=== PATIENT | male | born 1980 | race Caucasian/White ===

== ENCOUNTER 2020-07-24 14:18 | Inpatient (IN) ==
[2020-07-24] MEDS ORDERED: hydrOXYzine HCl 25 MG TAB PO STA (14:54)
--- NOTE | 2020-07-24 15:07 | Emergency Department Note ---
Impression & Plan Suicidal ideation ED Provider Note NAME: BRAIN ROUSE AGE: 40 SEX: M : 1980 ARRIVES VIA: Ambulance INFORMANT: [Patient][nursing] ED PROVIDER(S): [Tereso Solis MD] CHIEF COMPLAINT: Suicidal HISTORY OF PRESENT ILLNESS: The patient is a 40-year-old male who presents to the ED with suicidal ideation. He has a plan to walk out in front of a car. The patient states that he has been feeling suicidal for around 2 months or so but things are worsening. He states he is overwhelmed with the fact that he feels he is a burden to his family and society. He is currently homeless. Patient states that in addition, he was discharged today from [facility] after around 3 months of rehab. He was being discharged to a homeless senior living that was not in the area and he became overly anxious and upset about the new living situation. The patient admits that he has a problem with alcohol. He has liver disease. Has been hospitalized multiple times for his alcohol abuse. He was recently at [facility]. After about a month of hospitalization at their facility for DTs, he was sent to rehab at [facility]. The patient has regained his strength and thus, was stable for discharge from rehab. The patient states that he was on some psychiatric medications, most of the though have been discontinued. He is willing to come into the hospital voluntarily for help. He does not want to feel this way. REVIEW OF SYSTEMS: See HPI for pertinent positives and negatives. A total of ten systems were reviewed and were otherwise negative. PMHx/PSHx: See Below SOCIAL HISTORY: See Below. PHYSICAL EXAM: GENERAL: Patient is in no acute distress. HEENT: No acute trauma, normocephalic atraumatic, mucous membranes moist, no na jordy congestion, no scleral icterus. NECK: No stridor, no adenopathy, no meningismus, trachea is midline. LUNGS: Clear to auscultation bilaterally, no wheeze, no rhonchi, breath sounds equal. HEART: Without murmurs gallops or rubs, regular rate and rhythm. ABDOMEN: Soft, nontender, bowel sounds positive, no hernias, no peritonitis. EXTREMITIES: No cyanosis or edema, full range of motion of all the joints without pain or difficulty, no signs for acute trauma. NEUROLOGIC: Oriented x 3, no acute motor or sensory deficits, no focal weakness. SKIN: No rash, no jaundice, no diaphoresis. Psychiatric: Cooperative, voluntary. Admits to suicidal ideation with a plan. DIFFERENTIAL DIAGNOSIS: Mood disorder, infection, hypoglycemia, electrolyte abnormalities, suicidal ideation, cardiac sources, intracerebral event, toxicologic etiology, trauma, neurologic event, as well as other pathologies. EMERGENCY DEPARTMENT COURSE/PROCEDURES: MEDICAL DECISION MAKING: There is no leukocytosis. The patient is anemic but this is baseline when looking back at his recent testing. He also has a low platelet count, also baseline. No significant electrolyte abnormality or kidney failure. There are some subtle liver enzyme elevations which have been documented in the very recent past and thus baseline. Patient's TSH was slightly elevated, the T4 was normal. Urinalysis did not show any evidence for infection. Aspirin, Tylenol and alcohol levels were undetectable. Urine tox was negative. Covid testing returned negative. The patient presents with suicidal ideation. He had a plan to walk out in front of a vehicle. He has had suicidal ideation in the past and has in the past been hospitalized on a psychiatric service. The patient is voluntary, he is cooperative. He is willing to be hospitalized by psychiatry. Patient was given his typical dose of oral Adderall. He received oral hydroxyzine to help with some agitation. He was given his typical dose of oral oxycodone. He received his typical dose of oral Lopressor. The patient is currently undergoing a bed search for psychiatric placement. I do think he is medically clear. At this point, the case is being assumed by Dr. Cho at the change of shift. Please see his notes for the final disposition and plan. Past Med/Surg History Medical History Alcohol abuse Delirium tremens Depression Liver disease Social History Smoking Status: Former smoker Feels Safe at Home: Yes Allergies Allergies Allergy/AdvReac Type Severity Reaction Status Date / Time No Known Allergies Allergy Mild Verified 07/24/20 15:05 Home Meds Home Medications Medication Instructions Recorded Confirmed Albuterol-Ipratropium 1 puff INHALATION QID PRN 07/24/20 07/24/20 100mcg-20mcg/Inh Aerosol Hydrocortisone/Neomycin/Polymixin 2 drp OTIC (EAR) QID 07/24/20 07/24/20 B Otic Solution acetaminophen [Tylenol] 650 mg PO QID PRN 07/24/20 07/24/20 ascorbic acid (vitamin C) 500 mg PO BID 07/24/20 07/24/20 cholecalciferol (vitamin D3) 50 mcg PO DAILY 07/24/20 07/24/20 dextroamphetamine-amphetamine 20 mg PO TID 07/24/20 07/24/20 docusate sodium [Colace] 100 mg PO BID PRN 07/24/20 07/24/20 duloxetine 30 mg PO DAILY 07/24/20 07/24/20 famotidine [Pepcid] 20 mg PO DAILY 07/24/20 07/24/20 folic acid 1 mg PO DAILY 07/24/20 07/24/20 lactulose 40 g PO QID 07/24/20 07/24/20 lidocaine 1 patch TOPICAL DAILY 07/24/20 07/24/20 melatonin 3 mg PO HS 07/24/20 07/24/20 metoprolol tartrate 50 mg PO BID 07/24/20 07/24/20 multivitamin 1 tab PO DAILY 07/24/20 07/24/20 ondansetron HCl [Zofran] 8 mg PO DAILY PRN 07/24/20 07/24/20 oxycodone 2.5 mg PO Q8H PRN 07/24/20 07/24/20 pantoprazole 40 mg PO BID 07/24/20 07/24/20 potassium chloride 10 meq PO DAILY 07/24/20 07/24/20 rifaximin 550 mg PO BID 07/24/20 07/24/20 simethicone 80 mg PO TID PRN 07/24/20 07/24/20 sodium bicarbonate 1,300 mg PO BID 07/24/20 07/24/20 tramadol [Ultram] 25 mg PO Q8H PRN 07/24/20 07/24/20 ursodiol 300 mg PO BID 07/24/20 07/24/20 Results & Data (ED) Vital Signs Vital Signs - 24 hr 07/24/20 14:29 07/24/20 17:22 Temperature 37.1 C Temperature Source Oral Pulse Rate 92 H Pulse Rate [Right Finger] 92 H 94 H Respiratory Rate 20 20 Respiratory Effort / Characteristics Non-Labored Spontaneous Respiratory Depth Normal Respiratory Pattern Regular Blood Pressure 178/112 H Blood Pressure [Left Arm] 178/112 H 147/106 H Blood Pressure Mean 134 Blood Pressure Mean [Left Arm] 134 119 Pulse Oximetry 98 99 Oxygen Delivery Method Room Air Sepsis Recent Fever Within 48 Hours No Sepsis New/Unexplained Change in Mental Status No Sepsis Action Taken by Nursing No Action Required Home Medications Current Medication List: was personally reviewed by me Laboratory Data Attestation: I reviewed the patient's lab results. Result diagrams: 07/24/20 15:04 07/24/20 15:04 Lab Results 07/24/20 07/24/20 07/24/20 Range/Units 15:04 15:04 15:04 WBC 4.85 (4.8-10.8) K/uL RBC 2.99 L (4.7-6.1) M/uL Hgb 9.1 L (14.0-18.0) g/dL Hct 27.2 L (42-52) % MCV 91.0 (80-100) fL MCH 30.4 (25-34) pg MCHC 33.5 (32-36) g/dL RDW Std Deviation 53.2 H (36.4-46.3) fL RDW Coeff of Maia 16.0 H (11.5-14.5) % Plt Count 69 L (130-400) K/uL MPV 8.5 (7.4-10.4) fL Immature Gran % (Auto) 0.2 % Neut % (Auto) 69.1 % Lymph % (Auto) 22.3 % Ness % (Auto) 6.6 % Eos % (Auto) 1.6 % Baso % (Auto) 0.2 % Neut # (Auto) 3.35 (1.4-6.5) K/uL Lymph # (Auto) 1.08 L (1.2-3.4) K/uL Ness # (Auto) 0.32 (0.11-0.59) K/uL Eos # (Auto) 0.08 (0-0.5) K/uL Baso # (Auto) 0.01 (0-0.2) K/uL Immature Gran # (Auto) 0.01 (0.00-0.02) K/uL Platelet Estimate Decreased L (Normal) Polychromasia 1+ Tear Drop Cells 1+ Sodium 140 (136-145) mmol/L Potassium 4.2 (3.5-5.1) mmol/L Chloride 109 H (98-107) mmol/L Carbon Dioxide 26 (21-32) mmol/L Anion Gap 5.0 (3-11) BUN 15 (7-18) mg/dl Creatinine 1.08 (0.6-1.4) mg/dl Est Cr Clr Drug Dosing 134.5 ml/min Est GFR ( Amer) 100.4 Est GFR (Non-Af Amer) 86.6 BUN/Creatinine Ratio 13.4 (10-20) Glucose 121 H (70-99) mg/dl Calcium 8.4 L (8.5-10.1) mg/dl Total Bilirubin 1.4 H (0.2-1) mg/dl AST 38 H (15-37) U/L ALT 24 (12-78) U/L Alkaline Phosphatase 98 (45-117) U/L Total Protein 7.5 (6.4-8.2) gm/dl Albumin 2.9 L (3.4-5.0) gm/dl Globulin 4.6 H (2.5-4.0) gm/dl Albumin/Globulin Ratio 0.6 L (0.9-2) TSH 5.000 H (0.300-4.500) uIu/ml Free T4 1.29 (0.8-1.6) ng/dl Urine Color Urine Appearance (Clear) Urine pH (4.5-7.5) Ur Specific [place] (1.000-1.030) Urine Protein (Negative) Urine Glucose (UA) (Negative) Urine Ketones (Negative) Urine Blood (Negative) Urine Nitrite (Negative) Urine Bilirubin (Negative) Urine Urobilinogen (Negative) Ur Leukocyte Esterase (Negative) Urine WBC (Auto) (0-5) /hpf Urine RBC (Auto) (0-4) /hpf U Hyaline Cast (Auto) (0-5) /lpf U Epithel Cells (Auto) (0-5) /lpf Urine Bacteria (Auto) (Negative) Salicylates < 1.7 L (2.8-20) mg/dl Urine Opiates Screen (Neg) Ur Methadone, Qual (Neg) Acetaminophen < 2 L (10-30) ug/ml Urine Barbiturates (Neg) Ur Phencyclidine (PCP) (Neg) U Amphetamin/Meth Scrn (Neg) MDMA (Ecstasy) Screen (Neg) U Benzodiazepines Scrn (Neg) Ur Cocaine Metabolite (Neg) U Marijuana (THC) Screen (Neg) Ethyl Alcohol mg/dL (0-3) mg/dl SARS-CoV-2 Ag (Rapid) (Negative) 07/24/20 07/24/20 07/24/20 Range/Units 15:04 15:42 15:42 WBC (4.8-10.8) K/uL RBC (4.7-6.1) M/uL Hgb (14.0-18.0) g/dL Hct (42-52) % MCV (80-100) fL MCH (25-34) pg MCHC (32-36) g/dL RDW Std Deviation (36.4-46.3) fL RDW Coeff of Maia (11.5-14.5) % Plt Count (130-400) K/uL MPV (7.4-10.4) fL Immature Gran % (Auto) % Neut % (Auto) % Lymph % (Auto) % Ness % (Auto) % Eos % (Auto) % Baso % (Auto) % Neut # (Auto) (1.4-6.5) K/uL Lymph # (Auto) (1.2-3.4) K/uL Ness # (Auto) (0.11-0.59) K/uL Eos # (Auto) (0-0.5) K/uL Baso # (Auto) (0-0.2) K/uL Immature Gran # (Auto) (0.00-0.02) K/uL Platelet Estimate (Normal) Polychromasia Tear Drop Cells Sodium (136-145) mmol/L Potassium (3.5-5.1) mmol/L Chloride (98-107) mmol/L Carbon Dioxide (21-32) mmol/L Anion Gap (3-11) BUN (7-18) mg/dl Creatinine (0.6-1.4) mg/dl Est Cr Clr Drug Dosing ml/min Est GFR ( Amer) Est GFR (Non-Af Amer) BUN/Creatinine Ratio (10-20) Glucose (70-99) mg/dl Calcium (8.5-10.1) mg/dl Total Bilirubin (0.2-1) mg/dl AST (15-37) U/L ALT (12-78) U/L Alkaline Phosphatase (45-117) U/L Total Protein (6.4-8.2) gm/dl Albumin (3.4-5.0) gm/dl Globulin (2.5-4.0) gm/dl Albumin/Globulin Ratio (0.9-2) TSH (0.300-4.500) uIu/ml Free T4 (0.8-1.6) ng/dl Urine Color Dark Yellow Urine Appearance Clear (Clear) Urine pH 8.5 H (4.5-7.5) Ur Specific [place] 1.024 (1.000-1.030) Urine Protein Trace H (Negative) Urine Glucose (UA) Negative (Negative) Urine Ketones Trace H (Negative) Urine Blood Negative (Negative) Urine Nitrite Negative (Negative) Urine Bilirubin Negative (Negative) Urine Urobilinogen Negative (Negative) Ur Leukocyte Esterase Negative (Negative) Urine WBC (Auto) 1-5 (0-5) /hpf Urine RBC (Auto) 0-4 (0-4) /hpf U Hyaline Cast (Auto) 1-5 (0-5) /lpf U Epithel Cells (Auto) 5-10 H (0-5) /lpf Urine Bacteria (Auto) Negative (Negative) Salicylates (2.8-20) mg/dl Urine Opiates Screen Neg (Neg) Ur Methadone, Qual Neg (Neg) Acetaminophen (10-30) ug/ml Urine Barbiturates Neg (Neg) Ur Phencyclidine (PCP) Neg (Neg) U Amphetamin/Meth Scrn Neg (Neg) MDMA (Ecstasy) Screen Neg (Neg) U Benzodiazepines Scrn Neg (Neg) Ur Cocaine Metabolite Neg (Neg) U Marijuana (THC) Screen Neg (Neg) Ethyl Alcohol mg/dL < 3.0 (0-3) mg/dl SARS-CoV-2 Ag (Rapid) (Negative) 07/24/20 Range/Units 17:07 WBC (4.8-10.8) K/uL RBC (4.7-6.1) M/uL Hgb (14.0-18.0) g/dL Hct (42-52) % MCV (80-100) fL MCH (25-34) pg MCHC (32-36) g/dL RDW Std Deviation (36.4-46.3) fL RDW Coeff of Maia (11.5-14.5) % Plt Count (130-400) K/uL MPV (7.4-10.4) fL Immature Gran % (Auto) % Neut % (Auto) % Lymph % (Auto) % Ness % (Auto) % Eos % (Auto) % Baso % (Auto) % Neut # (Auto) (1.4-6.5) K/uL Lymph # (Auto) (1.2-3.4) K/uL Ness # (Auto) (0.11-0.59) K/uL Eos # (Auto) (0-0.5) K/uL Baso # (Auto) (0-0.2) K/uL Immature Gran # (Auto) (0.00-0.02) K/uL Platelet Estimate (Normal) Polychromasia Tear Drop Cells Sodium (136-145) mmol/L Potassium (3.5-5.1) mmol/L Chloride (98-107) mmol/L Carbon Dioxide (21-32) mmol/L Anion Gap (3-11) BUN (7-18) mg/dl Creatinine (0.6-1.4) mg/dl Est Cr Clr Drug Dosing ml/min Est GFR ( Amer) Est GFR (Non-Af Amer) BUN/Creatinine Ratio (10-20) Glucose (70-99) mg/dl Calcium (8.5-10.1) mg/dl Total Bilirubin (0.2-1) mg/dl AST (15-37) U/L ALT (12-78) U/L Alkaline Phosphatase (45-117) U/L Total Protein (6.4-8.2) gm/dl Albumin (3.4-5.0) gm/dl Globulin (2.5-4.0) gm/dl Albumin/Globulin Ratio (0.9-2) TSH (0.300-4.500) uIu/ml Free T4 (0.8-1.6) ng/dl Urine Color Urine Appearance (Clear) Urine pH (4.5-7.5) Ur Specific [place] (1.000-1.030) Urine Protein (Negative) Urine Glucose (UA) (Negative) Urine Ketones (Negative) Urine Blood (Negative) Urine Nitrite (Negative) Urine Bilirubin (Negative) Urine Urobilinogen (Negative) Ur Leukocyte Esterase (Negative) Urine WBC (Auto) (0-5) /hpf Urine RBC (Auto) (0-4) /hpf U Hyaline Cast (Auto) (0-5) /lpf U Epithel Cells (Auto) (0-5) /lpf Urine Bacteria (Auto) (Negative) Salicylates (2.8-20) mg/dl Urine Opiates Screen (Neg) Ur Methadone, Qual (Neg) Acetaminophen (10-30) ug/ml Urine Barbiturates (Neg) Ur Phencyclidine (PCP) (Neg) U Amphetamin/Meth Scrn (Neg) MDMA (Ecstasy) Screen (Neg) U Benzodiazepines Scrn (Neg) Ur Cocaine Metabolite (Neg) U Marijuana (THC) Screen (Neg) Ethyl Alcohol mg/dL (0-3) mg/dl SARS-CoV-2 Ag (Rapid) Negative (Negative) Administered Medications Discontinued Medications Amphetamine/Dextroamphetamine (Amphetamine Asp/Sulf/Dextramph 20 Mg Tab) 20 mg PO NOW STA Stop: 07/24/20 17:13 Last Admin: 07/24/20 17:51 Dose: 20 mg Documented by: [id number] Hydroxyzine HCl (Hydroxyzine Hcl 25 Mg Tab) 25 mg PO NOW STA Stop: 07/24/20 14:55 Last Admin: 07/24/20 15:04 Dose: Not Given Documented by: [id number] Oxycodone HCl (Oxycodone Hcl Ir 5 Mg Tab (Immediate Release)) 2.5 mg PO NOW STA Stop: 07/24/20 15:46 Last Admin: 07/24/20 15:53 Dose: 2.5 mg Documented by: [id number] Discharge Plan Visit Data Chief Complaint: Mental Health Evaluation ED Provider: Tereso Solis Discharge Problem: Suicidal ideation Patient Disposition: Still a Patient Condition: Good Forms Stand Alone Forms: My [facility], Suicide Prevention Resources Prescriptions Prescriptions: No Action Albuterol-Ipratropium 100mcg-20mcg/Inh Aerosol 1 puff inhalation QID PRN (Reason: Cough) RF: 0 multivitamin Tablet 1 tab PO DAILY RF: 0 acetaminophen [Tylenol] 325 mg Tablet 650 mg PO QID PRN (Reason: Pain) RF: 0 sodium bicarbonate 325 mg Tablet 1,300 mg PO BID RF: 0 ondansetron HCl [Zofran] 8 mg Tablet 8 mg PO DAILY PRN (Reason: Vomiting) RF: 0 potassium chloride 10 mEq Tablet Extended Release 10 meq PO DAILY RF: 0 melatonin 3 mg Tablet 3 mg PO HS RF: 0 tramadol [Ultram] 50 mg Tablet 25 mg PO Q8H PRN (Reason: Pain) RF: 0 famotidine [Pepcid] 20 mg Tablet 20 mg PO DAILY RF: 0 ascorbic acid (vitamin C) 500 mg Tablet 500 mg PO BID RF: 0 pantoprazole 40 mg Tablet,Delayed Release (Dr/Ec) 40 mg PO BID RF: 0 dextroamphetamine-amphetamine 20 mg tablet 20 mg PO TID RF: 0 lidocaine 5 % Adhesive Patch,Medicated 1 patch TOPICAL DAILY RF: 0 ursodiol 300 mg Capsule 300 mg PO BID RF: 0 metoprolol tartrate 50 mg Tablet 50 mg PO BID RF: 0 docusate sodium [Colace] 100 mg Capsule 100 mg PO BID PRN (Reason: Constipation) RF: 0 folic acid 1 mg Tablet 1 mg PO DAILY RF: 0 simethicone 80 mg Tablet,Chewable 80 mg PO TID PRN (Reason: Gi Upset) RF: 0 oxycodone 5 mg Tablet 2.5 mg PO Q8H PRN (Reason: Pain) RF: 0 duloxetine 30 mg Capsule,Delayed Release(Dr/Ec) 30 mg PO DAILY RF: 0 cholecalciferol (vitamin D3) 50 mcg (2,000 unit) Capsule 50 mcg PO DAILY RF: 0 rifaximin 550 mg Tablet 550 mg PO BID RF: 0 lactulose 20 gram/30 mL Solution 40 g PO QID RF: 0 Hydrocortisone/Neomycin/Polymixin B Otic Solution 2 drp otic (ear) QID RF: 0 Referrals Referrals: PCP,NO [Primary Care Provider] -
[2020-07-24] MEDS ORDERED: oxyCODONE HCL IR 5 MG TAB (IMMEDIATE RELEASE) PO STA (15:45)
[2020-07-24 15:50] LABS: Albumin Level 2.9 gm/dl (3.4-5.0); BUN Creatinine Ratio 13.4 (10-20); Calcium 8.4 mg/dl (8.5-10.1); Creatinine Clr Calc Pharmacy 134.5 ml/min; Est GFR (African American) 100.4; Est GFR (Non-African American) 86.6; Potassium 4.2 mmol/L (3.5-5.1)
[2020-07-24 16:00] LABS: Albumin Globulin Ratio 0.6 (0.9-2); Bilirubin,Total 1.4 mg/dl (0.2-1); Globulin 4.6 gm/dl (2.5-4.0); Total Protein 7.5 gm/dl (6.4-8.2)
[2020-07-24 16:11] LABS: Acetaminophen < 2 ug/ml (10-30)
[2020-07-24 16:12] LABS: Appearance Urine Clear (Clear); Bacteria Urine Automated Negative (Negative); Bilirubin Urine Negative (Negative); Blood Urine Negative (Negative); Color Urine Dark Yellow; Glucose Urine UA Negative (Negative); Ketones Urine Trace (Negative); Leukocyte Esterase Urine Negative (Negative); Nitrite Urine Negative (Negative); RBC Urine Automated 0-4 /hpf (0-4); Specific Gravity Urine 1.024 (1.000-1.030); Urobilinogen Urine Negative (Negative); pH Urine 8.5 (4.5-7.5)
[2020-07-24 16:12] LABS: Salicylate < 1.7 mg/dl (2.8-20)
[2020-07-24 16:13] LABS: T4 Free Thyroxine 1.29 ng/dl (0.8-1.6)
[2020-07-24 16:14] LABS: Protein Urine Trace (Negative)
[2020-07-24 16:21] LABS: Hematocrit (blood only) 27.2 % (42-52); Hemoglobin 9.1 g/dL (14.0-18.0); Mean Corpuscular Hemoglobin 30.4 pg (25-34); Mean Corpuscular Hgb Conc 33.5 g/dL (32-36); Mean Platelet Volume 8.5 fL (7.4-10.4); Platelet Count 69 K/uL (130-400); RDW Standard Deviation 53.2 fL (36.4-46.3); Red Blood Count 2.99 M/uL (4.7-6.1); White Blood Count 4.85 K/uL (4.8-10.8)
[2020-07-24 16:22] LABS: Basophils # (auto) 0.01 K/uL (0-0.2); Basophils % (auto) 0.2 %; Eosinophils # (auto) 0.08 K/uL (0-0.5); Eosinophils % (auto) 1.6 %; Immature Granulocytes # (auto) 0.01 K/uL (0.00-0.02); Immature Granulocytes % (auto) 0.2 %; Lymphocytes # (auto) 1.08 K/uL (1.2-3.4); Lymphocytes % (auto) 22.3 %; Monocytes # (auto) 0.32 K/uL (0.11-0.59); Monocytes % (auto) 6.6 %; Neutrophils # (auto) 3.35 K/uL (1.4-6.5); Neutrophils % (auto) 69.1 %; Platelet Estimate Decreased (Normal); Polychromasia 1+; Tear Drop Cells 1+
[2020-07-24 16:28] LABS: Amphetamines+Metham, Urine Neg (Neg); Barbiturates, Urine Neg (Neg); Benzodiazepine, Urine Neg (Neg); Cocaine, Urine Neg (Neg); MDMA (Ecstacy), Urine Neg (Neg); Methadone, Urine Neg (Neg); Opiate, Urine Neg (Neg); Phencyclidine, Urine Neg (Neg)
[2020-07-24] MEDS ORDERED: AMPHETAMINE ASP/SULF/DEXTRAMPH 20 MG TAB PO STA (17:12)
[2020-07-24] MEDS ORDERED: METOPROLOL TARTRATE 50 MG TAB PO STA (19:58)
[2020-07-24] MEDS ORDERED: SIMETHICONE 80 MG CHEW PO PRN (20:49)
[2020-07-24] MEDS ORDERED: DOCUSATE SODIUM 100 MG CAP PO PRN (20:49)
--- NOTE | 2020-07-24 20:52 | Emergency Department Note ---
ED Visit Note I did receive signout from Dr. Solis pending bed search. The patient is currently a medically clear voluntary 201 he did have a recent stent in rehab due to concern for alcohol use. Home medications were ordered and bed search is pending. Patient was signed out to Dr. Dawn still pending placement. .
[2020-07-24] MEDS ORDERED: AMPHETAMINE ASP/SULF/DEXTRAMPH 20 MG TAB PO SCH (21:00)
[2020-07-24] MEDS: ursodioL 300 MG CAP PO SCH (21:46)
[2020-07-24] MEDS: SODIUM BICARBONATE 650 MG TAB PO SCH (21:47)
[2020-07-24] MEDS: ASCORBIC ACID 500 MG TAB PO SCH (21:47)
[2020-07-24] MEDS: MELATONIN 3 MG TAB PO SCH (21:47)
[2020-07-24] MEDS: rifAXIMin 550 MG TABLET PO SCH (21:47)
[2020-07-24] MEDS: PANTOprazole 40 MG TAB PO SCH (21:47)
[2020-07-24] MEDS: LACTULOSE SYRUP 20 GM/30 ML UDC PO SCH (21:47)
[2020-07-24] MEDS: METOPROLOL TARTRATE 50 MG TAB PO SCH (23:44)
[2020-07-25] MEDS ORDERED: oxyCODONE IR HOME PACK PO PRN (00:38)
--- NOTE | 2020-07-25 00:42 | Emergency Department Note ---
ED Visit Note ED Physician Sign Out Note: 40 yr old male signed out to me pending dual diagnosis rehab/psych placement. Patient with increasing suicidal thoughts today. Initial evaluated and medically cleared by Dr Solis. Multiple medical issues, alcoholism and depression history. Signed out to me by Dr Cho pending placement. No issues overnight and signed out to Dr Huang in am. Cesar Dawn MD
[2020-07-25] MEDS ORDERED: oxyCODONE HCL IR 5 MG TAB (IMMEDIATE RELEASE) PO STA (00:47)
--- NOTE | 2020-07-25 07:21 | Emergency Department Note ---
ED Visit Note The patient was taken in signout from Dr. Bronson at the change of shift. Patient was seen initially by Dr. Solis. Please see that note for details. The patient was pending inpatient psychiatric placement. In brief, 40 y/o homeless gentleman presents with SI. Needs dual diagnosis placement for drug and etoh. Scheduled meds ordered. 201. Patient signed out to Dr. Zavala at change of shift with placement pending. .
[2020-07-25] MEDS: ursodioL 300 MG CAP PO SCH ×2 (09:14→21:31)
[2020-07-25] MEDS: FOLIC ACID 1 MG TAB PO SCH (09:14)
[2020-07-25] MEDS: CHOLECALCIFEROL PO SCH (09:14)
[2020-07-25] MEDS: METOPROLOL TARTRATE 50 MG TAB PO SCH ×2 (09:14→21:31)
[2020-07-25] MEDS: DULoxetine HCL 30 MG CAP PO SCH (09:14)
[2020-07-25] MEDS: LACTULOSE SYRUP 20 GM/30 ML UDC PO SCH ×4 (09:14→21:32)
[2020-07-25] MEDS: POTASSIUM CHLORIDE 10 MEQ TABCR PO SCH (09:14)
[2020-07-25] MEDS: FAMOTIDINE 20 MG TAB PO SCH (09:15)
[2020-07-25] MEDS: rifAXIMin 550 MG TABLET PO SCH ×2 (09:15→21:32)
[2020-07-25] MEDS: SODIUM BICARBONATE 650 MG TAB PO SCH ×2 (09:15→21:32)
[2020-07-25] MEDS: AMPHETAMINE ASP/SULF/DEXTRAMPH 20 MG TAB PO SCH ×2 (09:15→14:33)
[2020-07-25] MEDS: MULTIVITAMIN TAB PO SCH (09:15)
[2020-07-25] MEDS: PANTOprazole 40 MG TAB PO SCH ×2 (09:15→21:31)
[2020-07-25] MEDS: traMADol HCL 50 MG TABLET PO PRN ×3 (09:15→21:42)
[2020-07-25] MEDS: ASCORBIC ACID 500 MG TAB PO SCH ×2 (09:15→21:32)
[2020-07-25] MEDS ORDERED: ONDANSETRON 4 MG OD TAB PO STA (13:16)
[2020-07-25] MEDS ORDERED: ONDANSETRON 4 MG OD TAB ONE (13:18)
[2020-07-25] MEDS ORDERED: ACETAMINOPHEN 325 MG TAB ONE (15:20)
[2020-07-25] MEDS ORDERED: ACETAMINOPHEN 325 MG TAB PO STA (15:20)
--- NOTE | 2020-07-25 16:18 | Emergency Department Note ---
ED Visit Note 1600: Sent in from Dr. Huang. 40-year-old male 302 homeless. Awaiting psychiatric placement. 2123: Psychiatric bed search still pending. Case signed out to Dr. Cho. .
[2020-07-25] MEDS ORDERED: hydrOXYzine HCl 25 MG TAB PO STA (20:23)
[2020-07-25] MEDS: MELATONIN 3 MG TAB PO SCH (21:31)
--- NOTE | 2020-07-25 22:38 | Emergency Department Note ---
ED Visit Note Received signout of the patient from the previous physician Dr. Zavala. The patient is pending disposition to inpatient psychiatric and rehab. Patient was deemed medically cleared and is currently pending placement. The patient is a voluntary 201. The patient had initially had a plan to walk into traffic to kill himself. Patient was signed out to Dr. Aly pending reevaluation and disposition. .
[2020-07-26] MEDS ORDERED: traMADol HCL 50 MG TABLET PO STA (03:35)
[2020-07-26] MEDS ORDERED: hydrOXYzine HCl 25 MG TAB PO STA (04:29)
--- NOTE | 2020-07-26 05:44 | Emergency Department Note ---
ED Visit Note Patient signed out to me at change of shift from Dr. Cho. Patient medically cleared prior to signout. Patient with a history of alcohol abuse and DTs, and had recently been in rehab. Following this patient became suicidal with a plan to walk into traffic. [facility] are trying to find a dual diagnosis placement for the patient. Bed search was suspended overnight. Patient did request Vistaril to help him sleep as well as medication for pain. Patient was given a dose of tramadol 25 mg per his medication list. Patient signed out to Dr. Huang at change of shift. .
[2020-07-26] MEDS: AMPHETAMINE ASP/SULF/DEXTRAMPH 20 MG TAB PO SCH ×2 (06:41→11:44)
--- NOTE | 2020-07-26 06:54 | Emergency Department Note ---
ED Visit Note The patient was taken in signout from Dr. Aly at the change of shift. Patient was seen initially by Dr. Solis. Please see that note for details. The patient was pending inpatient psychiatric placement. In brief, 40 y/o homeless gentleman presents with SI saying he thought to walk into traffic. Needs dual diagnosis placement for drug and etoh. Recently discharge for rehab program. Scheduled meds ordered. 201. Accepted to [facility] today. .
[2020-07-26] MEDS: ursodioL 300 MG CAP PO SCH ×2 (08:55→20:54)
[2020-07-26] MEDS: CHOLECALCIFEROL PO SCH (08:56)
[2020-07-26] MEDS: MULTIVITAMIN TAB PO SCH (08:56)
[2020-07-26] MEDS: FAMOTIDINE 20 MG TAB PO SCH (08:56)
[2020-07-26] MEDS: LACTULOSE SYRUP 20 GM/30 ML UDC PO SCH ×3 (08:56→20:52)
[2020-07-26] MEDS: FOLIC ACID 1 MG TAB PO SCH (08:56)
[2020-07-26] MEDS: ASCORBIC ACID 500 MG TAB PO SCH ×2 (08:56→20:56)
[2020-07-26] MEDS: DULoxetine HCL 30 MG CAP PO SCH (08:56)
[2020-07-26] MEDS: SODIUM BICARBONATE 650 MG TAB PO SCH ×2 (08:56→20:56)
[2020-07-26] MEDS: METOPROLOL TARTRATE 50 MG TAB PO SCH ×2 (08:56→21:11)
[2020-07-26] MEDS: POTASSIUM CHLORIDE 10 MEQ TABCR PO SCH (08:56)
[2020-07-26] MEDS: rifAXIMin 550 MG TABLET PO SCH ×2 (08:57→20:56)
[2020-07-26] MEDS: traMADol HCL 50 MG TABLET PO PRN (08:57)
[2020-07-26] MEDS: PANTOprazole 40 MG TAB PO SCH ×2 (09:04→21:12)
[2020-07-26] MEDS ORDERED: ACETAMINOPHEN 325 MG TAB PO PRN (12:57)
[2020-07-26] MEDS ORDERED: MAGNESIUM HYDROXIDE SUSP 30 ML UDC PO PRN (12:57)
[2020-07-26] MEDS ORDERED: SODIUM CHLORIDE 0.65% NA SOLN 45 ML (OCEAN) PRN (12:57)
[2020-07-26] MEDS ORDERED: ALUMINUM/MAGNESIUM SUSP 30 ML UDC PO PRN (12:57)
[2020-07-26] MEDS ORDERED: BISMUTH SUBSALICYLATE LIQD 236 ML PO PRN (12:57)
[2020-07-26] MEDS ORDERED: IPRATROPIUM INH PRN (13:16)
[2020-07-26] MEDS ORDERED: ALBUTEROL INH PRN (13:16)
--- NOTE | 2020-07-26 14:29 | Communication Note ---
Date of Service: July 26, 2020 Case reviewed with psychiatric liaison nurse, medical record reviewed including records from [facility] (see below). Patient has been in the ER since 07/24/20, sent in from [facility] after talking with staff at the [facility] as he expressed SI in context of finding out he was being discharged to a homeless fdc in [place] and was upset about this plan, as he doesn't know anyone there, and felt anxious and upset about it. He had previously been living with his parents in [place], but didn't feel welcome to return there. He reported a long h/o alcoholism with multiple hospitalizations, and prior to [facility] said he was at [facility] for a month for alcohol withdrawal, and that while there he was "throwing himself out of bed so he would break his neck." Reported he was drinking 1/2 gallon of vodka daily prior to that. He said that when he found out he was going to [place], he researched where the fdc was, and when he saw it was close to [facility], he had thoughts about walking in front of traffic. He had an extensive med list, said he had been taken off Seroquel 150mg HS and prazosin 15mg HS while at [facility] with worsening mood, and that he was prescribed Adderall for narcolepsy. He wanted treatment for both mental health and substance abuse problems, and referrals were made for dual diagnosis problems, but no accepting facility identified. Referrals were also made to general inpatient psychiatric units, all of whom declined and recommended dual diagnosis treatment. ER welfare case worker tried to engage him in sa fety planning and discharge to outpatient care, but he was poorly cooperative, would not let them call his parents yesterday. Today he did agree, but they were unable to be reached. He was continued on the medications reported by [facility], including Adderall 20mg tid, oxycodone 2.5mg q 8hr prn, tramadol 25mg q 8hr, and duloxetine 30mg daily. As he has been in the ER for 2 days with no accepting [facility] diagnosis facility, the psychiatric liaison nurse met with the patient, who reported he has no outpatient mental health treatment currently, as he was going to [facility], but his insurance is no longer accepted there. He indicated willingness to set up outpatient substance abuse treatment in [facility]. Reviewed external med history and PDMP to clarify home meds: metoprolol 100mg daily filled 07/06 hydroxyzine 25mg daily prn, duloxetine 60mg daily, quetiapine 50mg tid, prazosin 5mg bid all filled 05/05/2020 from [facility] at [facility]. Adderall 20mg #90 last filled 03/18/2020 from [facility]. Other controlled substances in the past year include Ativan 1mg #90 08/2019 and zolpidem 10mg #30 08/2019 from [facility], and Suboxone #27 from [facility] in 08/2019.
[2020-07-26] MEDS ORDERED: ONDANSETRON 8MG OD TAB PO PRN (14:41)
[2020-07-26] MEDS ORDERED: Ipratropium HFA Inhaler (Combivent Respimat P&T Subs) INH PRN (14:45)
[2020-07-26] MEDS ORDERED: Albuterol HFA 8 GM Inhaler (Combivent Respimat P&T Subs) INH PRN (14:45)
[2020-07-26] MEDS: NEOMYCIN/POLYMYX/HYDROCORT OT SOLN 10 ML BTL OT SCH ×2 (18:24→20:55)
[2020-07-26] MEDS: MELATONIN 3 MG TAB PO SCH (20:56)
[2020-07-26] MEDS: hydrOXYzine HCl 25 MG TAB PO PRN (21:08)
[2020-07-27] MEDS: hydrOXYzine HCl 25 MG TAB PO PRN ×3 (04:13→20:39)
--- NOTE | 2020-07-27 07:46 | History & Physical ---
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 (Neomycin/Polymyx/Hydrocort Ot Soln 10 Ml Btl) 2 drops OT QID JAMES Stop: 08/25/20 16:59 Last Admin: 07/26/20 20:55 Dose: 2 drops Documented by: Ondansetron HCl (Ondansetron 8mg Od Tab) 8 mg PO DAILY PRN PRN Reason: Vomiting Stop: 08/25/20 14:40 Pantoprazole Sodium (Pantoprazole 40 Mg Tab) 40 mg PO BID JAMES Stop: 08/23/20 20:59 Last Admin: 07/26/20 21:12 Dose: 40 mg Documented by: Potassium Chloride (Potassium Chloride 10 Meq Tabcr) 10 meq PO DAILY JAMES Stop: 08/24/20 08:59 Last Admin: 07/26/20 08:56 Dose: 10 meq Documented by: Rifaximin (Rifaximin 550 Mg Tablet) 550 mg PO BID JAMES Stop: 08/23/20 20:59 Last Admin: 07/26/20 20:56 Dose: 550 mg Documented by: Simethicone (Simethicone 80 Mg Chew) 80 mg PO TID PRN PRN Reason: Gi Upset Stop: 08/23/20 20:48 Sodium Bicarbonate (Sodium Bicarbonate 650 Mg Tab) 1,300 mg PO BID JAMES Stop: 08/23/20 20:59 Last Admin: 07/26/20 20:56 Dose: 1,300 mg Documented by: Sodium Chloride (Sodium Chloride 0.65% Na Soln 45 Ml ([place])) 1 - 2 sprays NA PRN PRN PRN Reason: Nasal Dryness/Congestion Stop: 08/25/20 12:56 Ursodiol (Ursodiol 300 Mg Cap) 300 mg PO BID JAMES Stop: 08/23/20 20:59 Last Admin: 07/26/20 20:54 Dose: 300 mg Documented by: Vitamin D (Cholecalciferol 1,000 Units 25 Mcg Tab) 2,000 units PO DAILY JAMES Stop: 08/26/20 08:59
[2020-07-27 08:43] LABS: Chol HDL Ratio 3; Cholesterol 117 mg/dl (0-200); HDL Cholesterol 40 mg/dl; LDL Cholesterol Calculated 59 mg/dl; Triglycerides 89 mg/dl (0-150); VLDL Cholesterol 18 mg/dl
[2020-07-27] MEDS: FAMOTIDINE 20 MG TAB PO SCH (09:14)
[2020-07-27] MEDS: POTASSIUM CHLORIDE 10 MEQ TABCR PO SCH (09:15)
[2020-07-27] MEDS: CHOLECALCIFEROL 1,000 UNITS 25 MCG TAB PO SCH (09:16)
[2020-07-27] MEDS: DULoxetine HCL 30 MG CAP PO SCH (09:17)
[2020-07-27] MEDS: ursodioL 300 MG CAP PO SCH ×2 (09:17→20:38)
[2020-07-27] MEDS: FOLIC ACID 1 MG TAB PO SCH (09:17)
[2020-07-27] MEDS: NEOMYCIN/POLYMYX/HYDROCORT OT SOLN 10 ML BTL OT SCH ×3 (09:17→20:36)
[2020-07-27] MEDS: SODIUM BICARBONATE 650 MG TAB PO SCH ×2 (09:18→20:39)
[2020-07-27] MEDS: ASCORBIC ACID 500 MG TAB PO SCH ×2 (09:18→20:39)
[2020-07-27] MEDS: rifAXIMin 550 MG TABLET PO SCH ×2 (09:19→20:38)
[2020-07-27] MEDS: METOPROLOL TARTRATE 50 MG TAB PO SCH ×2 (09:19→20:38)
[2020-07-27] MEDS: PANTOprazole 40 MG TAB PO SCH ×2 (09:19→20:38)
[2020-07-27] MEDS: MULTIVITAMIN TAB PO SCH (09:19)
[2020-07-27] MEDS: LIDOCAINE 5% 1 PATCH TD SCH (09:19)
[2020-07-27] MEDS ORDERED: cloNIDine HCL 0.1 MG TAB PO PRN (11:08)
[2020-07-27] MEDS ORDERED: DIPHENOXYLATE/ATROPINE 2.5/0.025MG TAB PO PRN (11:08)
[2020-07-27] MEDS ORDERED: cloNIDine HCL 0.1 MG TAB PO SCH (12:00)
[2020-07-27] MEDS: LACTULOSE SYRUP 20 GM/30 ML UDC PO SCH ×4 (13:37→20:33)
[2020-07-27] MEDS: IBUPROFEN 200 MG TAB PO PRN (17:45)
[2020-07-27] MEDS: MELATONIN 3 MG TAB PO SCH (20:39)
[2020-07-27 21:50] VITALS: O2SAT 97
[2020-07-27] MEDS ORDERED: PRAZOSIN HCL 1 MG CAP PO SCH (22:00)
[2020-07-27] MEDS ORDERED: QUEtiapine FUMARATE 100 MG TABLET PO SCH (22:00)
[2020-07-28 06:37] VITALS: PULSE 80; TEMP 98.1
[2020-07-28 08:14] LABS: Albumin Level 2.8 gm/dl (3.4-5.0); BUN Creatinine Ratio 22.7 (10-20); Calcium 8.6 mg/dl (8.5-10.1); Creatinine Clr Calc Pharmacy 199.5 ml/min; Est GFR (African American) 135.6; Potassium 3.6 mmol/L (3.5-5.1)
[2020-07-28 08:17] LABS: Albumin Globulin Ratio 0.7 (0.9-2); Bilirubin,Total 1.4 mg/dl (0.2-1); Total Protein 6.8 gm/dl (6.4-8.2)
[2020-07-28] MEDS: DULoxetine HCL 30 MG CAP PO SCH (09:31)
[2020-07-28] MEDS: FOLIC ACID 1 MG TAB PO SCH (09:31)
[2020-07-28] MEDS: POTASSIUM CHLORIDE 10 MEQ TABCR PO SCH (09:31)
[2020-07-28] MEDS: ursodioL 300 MG CAP PO SCH (09:31)
[2020-07-28] MEDS: LIDOCAINE 5% 1 PATCH TD SCH (09:32)
[2020-07-28] MEDS: PANTOprazole 40 MG TAB PO SCH (09:33)
[2020-07-28] MEDS: FAMOTIDINE 20 MG TAB PO SCH (09:33)
[2020-07-28] MEDS: ASCORBIC ACID 500 MG TAB PO SCH (09:33)
[2020-07-28] MEDS: METOPROLOL TARTRATE 50 MG TAB PO SCH (09:33)
[2020-07-28] MEDS: SODIUM BICARBONATE 650 MG TAB PO SCH (09:33)
[2020-07-28] MEDS: MULTIVITAMIN TAB PO SCH (09:33)
[2020-07-28] MEDS: hydrOXYzine HCl 25 MG TAB PO PRN (09:34)
[2020-07-28] MEDS: rifAXIMin 550 MG TABLET PO SCH (09:34)
[2020-07-28] MEDS: IBUPROFEN 200 MG TAB PO PRN (09:34)
[2020-07-28] MEDS: CHOLECALCIFEROL 1,000 UNITS 25 MCG TAB PO SCH (09:34)
[2020-07-28] MEDS: LACTULOSE SYRUP 20 GM/30 ML UDC PO SCH (09:41)
[2020-07-28] MEDS: NEOMYCIN/POLYMYX/HYDROCORT OT SOLN 10 ML BTL OT SCH (09:41)
[2020-07-28 09:54] VITALS: BP 151/103
--- NOTE | 2020-07-28 11:44 | Discharge Summary ---
Date of Service July 28, 2020 History of Present Illness Patient presented to the ER 07/24/2020 from , where he had been inpatient for rehab since discharge from [facility] 06/01/2021, where he had been hospitalized for an unknown amount of time for alcohol withdrawal, hepatitis, and metabolic encephalopathy. Per records from [facility], his hospital course was complicated by sepsis treated with 2 weeks of Zosyn, a small bowel obstruction that resolved without surgical intervention, anasarca with scrotal edema, and paracentesis x2. He was deemed to be a poor transplant candidate due to his ongoing alcohol abuse. He became weak during his hospitalization so was transferred to [facility] for rehab for generalized weakness, and had a prolonged stay there (almost 2 months). When he presented there, he was on acetaminophen as needed for pain as well as oxycodone 5 mg every 6 hours, and this was tapered down over his stay, with a plan to discontinue opiates on 07/23/2020. He was requesting multiple pain medications for headaches, and the physician there indicated he was mostly psychologically dependent on the controlled substances. Progress note from 07/23/2020 indicates he was angry about that, was threatening to leave the hospital, but did not have anywhere to go. Multiple other medication changes were made due to encephalopathy and liver disease, including discontinuation of quetiapine 150 mg and prazosin 5 mg twice daily. He had a hyperammonemia and was prescribed lactulose, but was noncompliant, and ammonia remained elevated: on 07/17/2020 was 65, and on 07/20/2020 was 61. The progress notes indicate that he made substantial progress in therapy and his general debility and weakness improved, he was able to perform ADLs independently, but had behavioral dysfunction. He became upset when he found out his only option at discharge was a homeless intermediate in [facility] where the intermediate was, and when he saw it was close to [facility], he had thoughts about walking in front of traffic. Community crisis center was contacted, and referred him to the ER. In the ER, he said he wanted treatment for both mental health and substance abuse problems, and referrals were made for dual diagnosis problems, but no accepting facility identified. Referrals were also made to general inpatient psychiatric units, all of whom declined and recommended dual diagnosis treatment. ER machine adjuster leader case trim tried to engage him in safety planning and discharge to outpatient care, but he was poorly cooperative, and would not let them call his parents, although he said he could return to live with them if he got treatment. Yesterday, as he has been in the ER for 2 days with no accepting dual diagnosis facility, the psychiatric liaison nurse met with the patient, who reported he has no outpatient mental health treatment currently, as he was going to [facility], but his insurance is no longer accepted there. He indicated willingness for inpatient treatment on the [facility] and to set up outpatient substance abuse treatment in [facility]. He was admitted voluntarily and continued on duloxetine 30 mg daily and numerous medications for medical issues. He has been consistently hypertensive since presentation, despite receiving metoprolol 50 mg twice daily (med reconciliation shows prescription for metoprolol 100 mg daily filled 07/06/2020). He agreed to sign releases for all recent hospitalization/outpatient providers, as well as parents. He was info rmed that controlled substances would not be prescribed unless appropriate and active prescriptions from his outpatient clinicians were confirmed. Admission labs notable for RBC 2.99, hemoglobin 9.1, hematocrit 27.2, glucose 121, total bilirubin 1.4, AST 38, TSH 5.0, free T4 1.29. UA with trace protein and ketones, 5-10 epithelial cells. UDS and Covid screen negative. On admission to the U, he was very focused on controlled substances, requesting tramadol, oxycodone, and Adderall. Records from [facility] reviewed: Patient was admitted 04/11/2020-05/31/2020 (50 days) on transfer from [facility] for alcohol withdrawal, hepatic encephalopathy, alcoholic hepatitis, and hyponatremia. He reported drinking 1/2 gallon of vodka daily, and his UDS was + for buprenorphine, amp hetamines, benzodiazepines, tricyclics, and marijuana. He was living with his mother and stepfather prior to admission. Gastroenterology was consulted for liver disease and recommended transfer to [facility] for hepatology consultation, however he was deemed to be a poor candidate for transplant due to continued alcohol abuse. Nephrology was consulted for acute kidney injury and concern for hepatorenal syndrome. He was treated with low-dose diuretics for anasarca, but creatinine increased and they were discontinued. General surgery was consulted for high-grade small bowel obstruction. He had sepsis with unclear etiology and completed a 2-week course of Zosyn. He had generalized edema due to his liver disease, including scrotal swelling, for which he saw urology. It was thought to be due to liver disease, but he was treated prophylactically with Omnicef. Palliative care was consulted to help clarify goals of care. He was initially encephalopathic and confused, with multif actorial delirium due to polypharmacy, substance abuse, alcohol withdrawal, hepatitis, hyponatremia, and hepatic encephalopathy. He had been on methadone, trazodone, duloxetine, baclofen, prazosin, and thioridazine at home, which were all discontinued. He was started on oxycodone to prevent withdrawal, with a plan to taper it. He had a head CT that was negative, and numerous other studies and interventions. He had a psychiatric consultation on 04/18/2020, and denied symptoms of depression, psychosis, and SI. He reported a history of depression and anxiety and said he was in outpatient treatment. On my assessment the patient is asking for opiates, stating he was getting oxycodone every 3 hours, and that he's going through withdrawal. Reviewed records, including that it was reduced throughout his stay at [facility], and that plan was to taper off with opiates stopping several days ago. He says he cannot remember the events of the past several months, is not sure when he was first hospitalized but is aware that he has been hospitalized almost 3.5 months. States he initially went to the local ER as "I was worried I was gonna go through alcohol withdrawal," and that he has been hospitalized 8 or 10 times for that. This is his longest period of sobriety (while hospitalized). He reports many previous psychiatric diagnoses, and says he's currently struggling with nightmares, multiple times overnight, which disrupt sleep and cause him to feel tired the next day. They cause anxiety, and negatively impacted. Content of nightmares "strange, anything bad you can think of," not related to past trauma. Mood worsened while at [facility], due to being isolated and "thinking about what a fuckup I am, felt like I was already." His mother has been sick, losing weight and "pulling her hair out," and told him it was due to stress over him being in the hospital. His parents told him he couldn't come back to live with them "unless I went to a treatment facility, a rehab or something." He was referred to inpatient substance abuse treatment from [facility], but no facility would accept him due to his medical problems. He states he is willing for IOP treatment and "I'm not planning on drinking again," but can't give any ideas on how he will stay sober. He has lost weight over the past several months while hospitalized, but appetite has returned to normal over the past several weeks. States he "thinks about suicide all the time," since he was a teenager/in high school, "the philosophical side of it," but denies ever attempting suicide. Denies anhedonia, enjoys watching TV, playing video games, reading. Spends his time at home playing video games and on social media, "I'm never bored." Denies anxiety and OCD symptoms, PTSD, george and psychosis. Physical Exam Psychiatric Orientation: oriented x 3 Apperance: + disheveled Eye Contact: + poor eye contact Motor Behavior: + psychomotor retardation (The patient's physical slowness seems to be largely a function of his morbi) The patient speaks spontaneously but in a somewhat slowed and deliberate fashion. Affect: + irritable affect The patient's affect changed quickly to euthymic once it was made absolutely clear that he was going to be discharged today. Mood: + angry mood Thought Process: goal directed thought process Thought Content: reality based without delusions Suicidal Thoughts: + reports suicidal thoughts Patient does report suicidal thoughts, but repeatedly slips and refers to the suicidal thoughts in the past tense. Are finding is that the patient uses threats of suicide as part of his effort to remain in the sickness role, within the context of his passive dependent personality features. Homicidal Thoughts: denies homicidal thoughts Hallucinations: + auditory hallucinations Again, it seems clear that the patient is falsely claiming to have psychiatric symptoms within the context of his effort to malinger psychiatric illness in order to remain in the sickness role. Cognition: recent memory grossly intact, remote memory grossly intact and attention grossly intact Estimated Intelligence: + above average estimated intelligence Insight: + limited insight Judgement: + limited judgement Vital Signs (Past 24 Hours) Last Vital Signs Temp 36.7 C 07/28/20 09:52 Pulse 80 07/28/20 09:52 Resp 18 07/28/20 09:52 BP 151/103 H 07/28/20 09:52 Pulse Ox 97 07/28/20 09:52 Principal Diagnosis Malingering Psychiatric Data During the the brief course of hospitalization the patient was offered various modalities of psychiatric treatment and education. He was referred for individual, group, activity, and milieu therapies. However, he refused to participate, and in individual work externalized all responsibilities and issued psychiatric complaints in a manner consistent with reciting a list that he had memorized. He was initially placed on duloxetine 30 mg a day, but as we observe the patient and learned more about him it became clear that he really does not meet criteria for a major depressive disorder. Duloxetine may be useful to the patient for chronic pain, but given his history of liver failure and alcohol abuse we believe that the best plan is to minimize his medications to those which are clearly likely to be beneficial. Accordingly, duloxetine was not continued to discharge. The patient consistently demonstrated that his primary investment was in remaining in the sickness role, and he constantly sought care taking while, the same time, applicator responsibility for his own behaviors. For example, he would discard items on the floor rather than in the trash can, make food messes and expect other people to clean up after him, refused to close the bathroom door while defecating, and he essentially demanded that everything that he wanted was to be done by other people. Individually, we tried to help the patient understand that at 40 he has developed a "very bad habit" of placing himself in positions in which other people take care of him, as if he was a young child. We referenced his longstanding dependence on his mother and stepfather, as well as his history of attempting to emphasize or feign the sickness role in order to be cared for by healthcare professionals, once it became clear that his parents were no longer able or willing to tolerate his irresponsible behaviors, his abuse of alcohol, his disregard for the rights and needs of other people, and his tendency to physically damage property through indifference. Typically, when these issues were raised with the patient he would simply repeat a litany of psychiatric symptoms that he had clearly memorized. However, when he was consistently confronted with the fact that our finding is that he is malingering, and that he is malingering because he is frightened, the age of 40, about his need to make personal efforts to alter and improve his own behaviors and take responsibility for his actions, the patient did seem to accept what we were saying and stopped reciting various psychiatric complaints or referencing suicidal thoughts. The treatment team is in agreement that given the patient's emphasis on passive dependency, and of the observation that he is rapidly becoming institutionalized, we believe that it is not in his best interest to remain in a hospital or other institutional setting because this seems to be only serving to cause him to be more passive and take less responsibility for himself. We also agree that the patient is at long-term risk for physical harm associated with deliberately making bad decisions, such as to resume alcohol use despite serious alcohol related somatic complications. He may also be at risk for acting out behaviors in the service of avoiding taking personal responsibility and continuing to secure the sickness role. However, not only is there is no reason to believe that further psychiatric hospitalization will mitigate this circumstance, as noted above are finding is that it is actually apt to intensify these undesirable behaviors and characteristics. It seems almost certain that the patient is likely to use threats of suicide and various psychiatric complaints in the future as a way of securing sickness roll, and future providers should be cautioned in this regard. Day of Discharge Assessment On the day of discharge the patient was found lying in bed. Food particles and problems were found laying about his person, his bed clothes, and the floor near his bed. He was reasonably cooperative and pleasant during the majority of the assessment. His appearance was disheveled. His hair was uncombed, and his clothes were somewhat disarranged. The patient's speech was spontaneous, but delivered in a somewhat slowed and laconic fashion. When asked about his mood, he said "fine.. I mean, I am depressed." The patient's affect was initially passive, became irritable when he was advised that he was being discharged, and then became euthymic when she had excepted that the decision to discharge him was final. The patient's thought processes demonstrated tight associations. No delusional material was identified in the patient's thought content. When specifically asked about perceptual disturbances, the patient hesitated and said that he "hears voices that other people do not hear." However, this report was delivered in a fashion that strongly was suggestive of malingering, and when asked to identify the gender of the voices he appeared flustered and after some hesitation replied "maybe a man?" Also as noted above, when asked about suicidality he referred several times this having suicidal ideation in the past tense, and then seem to catch himself and restate the assertion and the present tense. He also spontaneously coupled his report of suicidal thoughts with an assertion that this would guarantee him to remain in the hospital. Also, the patient had trouble identifying the specific nature of his reported thoughts, and never referenced any specific plan. The patient does seem to have some insight into his behavior, and once he was told that the decision to discharge him was made and that we believe that he is malingering, he nodded in recognition, stopped referencing psychiatric complaints, and engaged actively in the decision regarding which personal items he wanted to take with him in which he was planning to discard or leave behind. He also asked questions about the means of transportation. He said that he understood why his parents were unw illing to have him home, and he had various questions about the homeless intermediate to which he was being transported. Further, the patient ask about aftercare arrangements and wanted the names and appointment dates of his upcoming mental health and primary care appointments. The patient's intelligence is estimated to be average to below average. Transition of Care Transition Of Care Record: was reviewed with the patient Advance Directives Advance Directives Information Provided: Yes Advance Directives: No Mental Health Advance Directive: No Advance Directives on File: No Living Will: No Power of Shoulder Joiner: No Advance Directives Reason:: Declines as Mental Health Visit. Risk Factors Assessment Chronic alcohol and drug abuse. Long history of passive dependent behaviors. Male: Yes : Yes Do You Have Access To A Gun?: No Health Problems: Yes Mental Health Diagnoses: Yes Substance Use Disorders: Yes Previous Attempt: No Protective Factors Assessment Evangelical Beliefs: No : No Responsible for Young Children: No Employed: No Stable Relationships: No Supportive Family: Yes Good Rapport with Provider: No Absence of Any Risk Factors Above: No Tobacco Cessation at Discharge Tobacco Cessation Medication Prescribed at Discharge: Not Applicable/Non-Smoker Total Time Total Time Spent: Greater Than 30 Minutes Total Time Includes: Examination of the patient, Discharge Planning, Medication Reconciliation and Communication with other providers Discharge Data Lab Results 07/24/20 07/24/20 07/24/20 15:04 15:04 15:04 WBC 4.85 RBC 2.99 L Hgb 9.1 L Hct 27.2 L MCV 91.0 MCH 30.4 MCHC 33.5 RDW Std Deviation 53.2 H RDW Coeff of Maia 16.0 H Plt Count 69 L MPV 8.5 Immature Gran % (Auto) 0.2 Neut % (Auto) 69.1 Lymph % (Auto) 22.3 Barnes % (Auto) 6.6 Eos % (Auto) 1.6 Baso % (Auto) 0.2 Neut # (Auto) 3.35 Lymph # (Auto) 1.08 L Barnes # (Auto) 0.32 Eos # (Auto) 0.08 Baso # (Auto) 0.01 Immature Gran # (Auto) 0.01 Platelet Estimate Decreased L Polychromasia 1+ Tear Drop Cells 1+ Sodium 140 Potassium 4.2 Chloride 109 H Carbon Dioxide 26 Anion Gap 5.0 BUN 15 Creatinine 1.08 Est Cr Clr Drug Dosing 134.5 Est GFR ( Amer) 100.4 Est GFR (Non-Af Amer) 86.6 BUN/Creatinine Ratio 13.4 Glucose 121 H Estimat Average Glucose Hemoglobin A1c Calcium 8.4 L Total Bilirubin 1.4 H AST 38 H ALT 24 Alkaline Phosphatase 98 Ammonia Total Protein 7.5 Albumin 2.9 L Globulin 4.6 H Albumin/Globulin Ratio 0.6 L Triglycerides Cholesterol LDL Cholesterol, Calc VLDL Cholesterol, Calc HDL Cholesterol Cholesterol/HDL Ratio TSH 5.000 H Free T4 1.29 Urine Color Urine Appearance Urine pH Ur Specific Laporte Urine Protein Urine Glucose (UA) Urine Ketones Urine Blood Urine Nitrite Urine Bilirubin Urine Urobilinogen Ur Leukocyte Esterase Urine WBC (Auto) Urine RBC (Auto) U Hyaline Cast (Auto) U Epithel Cells (Auto) Urine Bacteria (Auto) Salicylates < 1.7 L Urine Opiates Screen Ur Methadone, Qual Acetaminophen < 2 L Urine Barbiturates Ur Phencyclidine (PCP) U Amphetamin/Meth Scrn MDMA (Ecstasy) Screen U Benzodiazepines Scrn Ur Cocaine Metabolite U Marijuana (THC) Screen Ethyl Alcohol mg/dL SARS-CoV-2 Ag (Rapid) Ref Lab Test Result 07/24/20 07/24/20 07/24/20 15:04 15:42 15:42 WBC RBC Hgb Hct MCV MCH MCHC RDW Std Deviation RDW Coeff of Maia Plt Count MPV Immature Gran % (Auto) Neut % (Auto) Lymph % (Auto) Barnes % (Auto) Eos % (Auto) Baso % (Auto) Neut # (Auto) Lymph # (Auto) Barnes # (Auto) Eos # (Auto) Baso # (Auto) Immature Gran # (Auto) Platelet Estimate Polychromasia Tear Drop Cells Sodium Potassium Chloride Carbon Dioxide Anion Gap BUN Creatinine Est Cr Clr Drug Dosing Est GFR ( Amer) Est GFR (Non-Af Amer) BUN/Creatinine Ratio Glucose Estimat Average Glucose Hemoglobin A1c Calcium Total Bilirubin AST ALT Alkaline Phosphatase Ammonia Total Protein Albumin Globulin Albumin/Globulin Ratio Triglycerides Cholesterol LDL Cholesterol, Calc VLDL Cholesterol, Calc HDL Cholesterol Cholesterol/HDL Ratio TSH Free T4 Urine Color Dark Yellow Urine Appearance Clear Urine pH 8.5 H Ur Specific Laporte 1.024 Urine Protein Trace H Urine Glucose (UA) Negative Urine Ketones Trace H Urine Blood Negative Urine Nitrite Negative Urine Bilirubin Negative Urine Urobilinogen Negative Ur Leukocyte Esterase Negative Urine WBC (Auto) 1-5 Urine RBC (Auto) 0-4 U Hyaline Cast (Auto) 1-5 U Epithel Cells (Auto) 5-10 H Urine Bacteria (Auto) Negative Salicylates Urine Opiates Screen Neg Ur Methadone, Qual Neg Acetaminophen Urine Barbiturates Neg Ur Phencyclidine (PCP) Neg U Amphetamin/Meth Scrn Neg MDMA (Ecstasy) Screen Neg U Benzodiazepines Scrn Neg Ur Cocaine Metabolite Neg U Marijuana (THC) Screen Neg Ethyl Alcohol mg/dL < 3.0 SARS-CoV-2 Ag (Rapid) Ref Lab Test Result 07/24/20 07/27/20 07/27/20 17:07 07:41 07:41 WBC RBC Hgb Hct MCV MCH MCHC RDW Std Deviation RDW Coeff of Maia Plt Count MPV Immature Gran % (Auto) Neut % (Auto) Lymph % (Auto) Barnes % (Auto) Eos % (Auto) Baso % (Auto) Neut # (Auto) Lymph # (Auto) Barnes # (Auto) Eos # (Auto) Baso # (Auto) Immature Gran # (Auto) Platelet Estimate Polychromasia Tear Drop Cells Sodium Potassium Chloride Carbon Dioxide Anion Gap BUN Creatinine Est Cr Clr Drug Dosing Est GFR ( Amer) Est GFR (Non-Af Amer) BUN/Creatinine Ratio Glucose Estimat Average Glucose Cancelled Hemoglobin A1c Cancelled Calcium Total Bilirubin AST ALT Alkaline Phosphatase Ammonia Total Protein Albumin Globulin Albumin/Globulin Ratio Triglycerides 89 Cholesterol 117 LDL Cholesterol, Calc 59 VLDL Cholesterol, Calc 18 HDL Cholesterol 40 Cholesterol/HDL Ratio 3 TSH Free T4 Urine Color Urine Appearance Urine pH Ur Specific Laporte Urine Protein Urine Glucose (UA) Urine Ketones Urine Blood Urine Nitrite Urine Bilirubin Urine Urobilinogen Ur Leukocyte Esterase Urine WBC (Auto) Urine RBC (Auto) U Hyaline Cast (Auto) U Epithel Cells (Auto) Urine Bacteria (Auto) Salicylates Urine Opiates Screen Ur Methadone, Qual Acetaminophen Urine Barbiturates Ur Phencyclidine (PCP) U Amphetamin/Meth Scrn MDMA (Ecstasy) Screen U Benzodiazepines Scrn Ur Cocaine Metabolite U Marijuana (THC) Screen Ethyl Alcohol mg/dL SARS-CoV-2 Ag (Rapid) Negative Ref Lab Test Result 07/27/20 07/27/20 07/28/20 07:54 08:55 07:40 WBC RBC Hgb Hct MCV MCH MCHC RDW Std Deviation RDW Coeff of Maia Plt Count MPV Immature Gran % (Auto) Neut % (Auto) Lymph % (Auto) Barnes % (Auto) Eos % (Auto) Baso % (Auto) Neut # (Auto) Lymph # (Auto) Barnes # (Auto) Eos # (Auto) Baso # (Auto) Immature Gran # (Auto) Platelet Estimate Polychromasia Tear Drop Cells Sodium Potassium Chloride Carbon Dioxide Anion Gap BUN Creatinine Est Cr Clr Drug Dosing Est GFR ( Amer) Est GFR (Non-Af Amer) BUN/Creatinine Ratio Glucose Estimat Average Glucose Hemoglobin A1c Calcium Total Bilirubin AST ALT Alkaline Phosphatase Ammonia 47.8 H 49.0 H Total Protein Albumin Globulin Albumin/Globulin Ratio Triglycerides Cholesterol LDL Cholesterol, Calc VLDL Cholesterol, Calc HDL Cholesterol Cholesterol/HDL Ratio TSH Free T4 Urine Color Urine Appearance Urine pH Ur Specific Laporte Urine Protein Urine Glucose (UA) Urine Ketones Urine Blood Urine Nitrite Urine Bilirubin Urine Urobilinogen Ur Leukocyte Esterase Urine WBC (Auto) Urine RBC (Auto) U Hyaline Cast (Auto) U Epithel Cells (Auto) Urine Bacteria (Auto) Salicylates Urine Opiates Screen Ur Methadone, Qual Acetaminophen Urine Barbiturates Ur Phencyclidine (PCP) U Amphetamin/Meth Scrn MDMA (Ecstasy) Screen U Benzodiazepines Scrn Ur Cocaine Metabolite U Marijuana (THC) Screen Ethyl Alcohol mg/dL SARS-CoV-2 Ag (Rapid) Ref Lab Test Result Cancelled 07/28/20 07:40 WBC RBC Hgb Hct MCV MCH MCHC RDW Std Deviation RDW Coeff of Maia Plt Count MPV Immature Gran % (Auto) Neut % (Auto) Lymph % (Auto) Barnes % (Auto) Eos % (Auto) Baso % (Auto) Neut # (Auto) Lymph # (Auto) Barnes # (Auto) Eos # (Auto) Baso # (Auto) Immature Gran # (Auto) Platelet Estimate Polychromasia Tear Drop Cells Sodium 141 Potassium 3.6 Chloride 110 H Carbon Dioxide 24 Anion Gap 7.0 BUN 17 Creatinine 0.74 Est Cr Clr Drug Dosing 199.5 Est GFR ( Amer) 135.6 Est GFR (Non-Af Amer) 117.0 BUN/Creatinine Ratio 22.7 H Glucose 96 Estimat Average Glucose Hemoglobin A1c Calcium 8.6 Total Bilirubin 1.4 H AST 29 ALT 24 Alkaline Phosphatase 85 Ammonia Total Protein 6.8 Albumin 2.8 L Globulin 4.0 Albumin/Globulin Ratio 0.7 L Triglycerides Cholesterol LDL Cholesterol, Calc VLDL Cholesterol, Calc HDL Cholesterol Cholesterol/HDL Ratio TSH Free T4 Urine Color Urine Appearance Urine pH Ur Specific [place] Urine Protein Urine Glucose (UA) Urine Ketones Urine Blood Urine Nitrite Urine Bilirubin Urine Urobilinogen Ur Leukocyte Esterase Urine WBC (Auto) Urine RBC (Auto) U Hyaline Cast (Auto) U Epithel Cells (Auto) Urine Bacteria (Auto) Salicylates Urine Opiates Screen Ur Methadone, Qual Acetaminophen Urine Barbiturates Ur Phencyclidine (PCP) U Amphetamin/Meth Scrn MDMA (Ecstasy) Screen U Benzodiazepines Scrn Ur Cocaine Metabolite U Marijuana (THC) Screen Ethyl Alcohol mg/dL SARS-CoV-2 Ag (Rapid) Ref Lab Test Result Hospital Course (1) Suicidal ideation: 07/27 -continue voluntary inpatient treatment. Every 15 minute checks for safety. Encourage group attendance and participation, work on healthy coping skills and discharge safety plan. Family meeting with parents (2) Depression: 07/27 -depression NOS, differential includes MDD, substance-induced mood disorder, personality disorder. -Continue duloxetine 30 mg daily target mood and chronic pain. I am hesitant to titrate it given his hepatic impairment (it was decreased at [facility]). He is requesting to resume quetiapine, stating it was helpful for mood, sleep, and nightmares. FLP and Hgb A1C checked today for monitoring on an atypical; FLP normal, hemoglobin A1c still pending. Reviewed risks, benefits, and side effects, including metabolic syndrome and effects on liver. He believes the benefits outweigh the risks. Will start 100 mg at bedtime, and consider titration back to previous effective dose of 150 mg. We will also resume prazosin as he reports it was helpful for nightmares, and currently nightmares are causing disrupted sleep and worsening mood. Start 1 mg at bedtime and titrate to effective dose, while monitoring liver function. -Primary stressors are psychosocial, with dysfunction and interpersonal relationships, lack of gainful employment or stable housing. 07/28 -There is no clear evidence the patient is malingering. His affect is fairly bright, and less references made to any expectation that he take responsibility for himself and for his own actions, or anytime dischargeas opposed to transfer to another 24-hour facilityis referenced. When asked, the patient ticks off symptoms of depression in rapid succession, in a fashion that clearly the case that he has memorized them. When asked why he is in the hospital, he responds, "I was having thoughts of suicide." When it was pointed out to him that he had used the past tense for the thoughts of suicide he seemed flustered and said "I mean I am having thoughts of suicide." He also made statements such as "I do not feel safe" in a fashion that was also highly suggestive of a learned behavior. He was advised that we are concerned that repeated stays in 24-hour care facility such as hospitals are leading to a fixed pattern of dependency and even institutionalization, and for that reason it will be not in the best interest of his recovery to remain passive independent in a hospital, he initially replied, "you cannot discharge somebody who said he was suicidal" --and then caught himself and said "I mean who is suicidal." As we discussed this further and it was made clear that he was not going to be kept in the hospital and that the treatment team agrees that it appears that he finds that the task of taking responsibility for himself to be daunting and so he is feigning suicidal ideations and depressive symptoms, his affect brightened, he excepted that he was being discharged, and began focusing upon what he does not and does not want to take with him when he leaves. -We have been in contact with the patient's mother several times this morning. She indicates that she understands the decision to discharge the patient today, but reiterates that she does not feel equipped to allow him back into the house because of the damage she has done to the house over the years, and because of his passive dependent behaviors. -We do not find that the patient carries a primary psychiatric diagnosis. 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 Clearly, the patient has had complications associated with his alcohol dependence and other drug related sequela. However, what is also clear is that he seeks the sickness role as part of his longstanding habit of advocating responsibility for himself, seeking the care and attention of others, and using psychiatric and physical complaints as a means of remaining in the sick role. (3) Alcohol abuse: 07/27 -severe substance abuse, with resulting liver disease, multiple hospitalizations for withdrawal, and exacerbation of multiple medical problems. While in the ER, transfer to inpatient rehab was explored, but they would not accept him as he had not been drinking in the past few months (although this was only due to the fact that he was hospitalized). Inpatient rehab is indicated as his alcoholism is the primary cause of most of his medical and mental health issues and interpersonal discord, and successful completion of an inpatient treatment program would give him the best chance of success in maintaining sobriety. We will refer to medically based programs ([facility]). If unavailable, explore dual diagnosis IOP options ([facility]). Brief intervention was offered and accepted Intervention was greater than 5 min in length. Brief interventions include: 1. Assess Readiness to Quit, 2. Advise: Help Patient to Reduce or Abstain from Alcohol, 3. Agree: Set Specific, Feasible Goals, 4. Assist: Anticipate barriers, Problem-Solving Solutions. Social work to 5. Arrange: Referrals to appropriate treatment. Summary of intervention: The patient is in contemplation stage with regards to transtheoretical model of change. The patient is advised to decrease alcohol consumption due to depressant effects and risk of interactions with prescription medications. The patient agreed to rehab or IOP and will be provided with recovery materials to continue to education self on how to cope with their condition without drinking. 07/28 -At discharge, the patient made statements such as "okay, if you discharge me, all go out and start drinking!" We recognize that this may be the case, but the threat is also part of the patient's dependent character issues, a pattern that seems to have been born of a lifetime of being passive, refusing to accept meaningful responsibility for himself, and constantly seeking personal care and services that are not actually medically necessary. (4) Opiate abuse, continuous: 07/27 -patient was weaned off opiates at [facility], although received several doses in the ER. He is reporting withdrawal symptoms including general sense of not feeling well as nausea, although reports nausea is chronic. He initially refused the clonidine withdrawal protocol, stating he used it before and it did not work, but later agreed to it. Will order clonidine only as needed and attempt to limit use due to the risk of hypertension when used in combination with metoprolol, and rebound hypertension when discontinued. Will offer other medications as needed for opiate withdrawal symptoms, including diarrhea, muscle aches, GI upset. (5) Chronic pain: 07/27 -patient reports chronic back pain and headaches. We can offer low- dose acetaminophen (caution due to hepatic disease), or NSAIDs, as well as supportive treatment including heating pad, ice, gentle stretching. Oxycodone and tramadol were to be discontinued several days ago per [facility] records, would not recommend to be prescribed controlled substances given the high risk of abuse/misuse/negative outcomes. (6) Liver disease: 07/27 -secondary to alcohol abuse. Avoid hepatotoxins, try to limit polypharmacy. He will need to follow-up with his PCP and GI specialist after discharge. Ammonia today is 41, will recheck tomorrow along with LFTs. 07/28 - Prior to discharge we arranged for the patient to get an appoint with a primary care physician, and he was scheduled for an appointment on 08/09/2020 at 2:15 PM for follow-up of his various somatic complaints. (7) Hypertension: 07/27 -continue home dose of metoprolol 50 mg twice daily and consider titration, check BP after medication is given to get a better sense of its efficacy. Prazosin and clonidine are being added, so will not adjust metoprolol today. 07/28 -see above. Mental Health & Subst Abuse Tx Psychiatrist Name of Psychiatrist: [facility]'s Phone Number: [phone] Date of Appointment with Psychiatrist: 07/31/20 Time of Appointment with Psychiatrist: 12:30pm Psychiatric Appointment Comment: [address] [facility] [address] Therapist Name of Therapist: Yunieljan Therapist's Phone Number: [phone] Date of Therapist Appointment: 07/31/20 Time of Therapist Appointment: 12:30pm Therapy Appointment Comment: [address] [place] [id number] Knife Cutter Name of Knife Cutter: none, "I can get from [facility] if I want." Post Discharge Appointments Primary Care Physician Name Of Family Doctor: Dr. Whitney ([place]) Primary Care Date of Appointment with PCP: 08/09/20 Time of Appointment with PCP: 2:15pm Provider Appointment Comment: [address] [place] [address] Smoking Cessation Counseling Tobacco Cessation Medication Prescribed at Discharge: Not Applicable/Non-Smoker Contact Information Discharge Discharge Address: [address] [place] [address] Discharge Plan Discharge Items Patient Disposition: Home - Self-Care Reason For Visit: SUICIDAL IDEATIONS Discharge Diagnosis: Malingering Condition on Discharge: Good Activity: Resume your previous activity Non-emergency contact: Primary Care Provider Call non-emergency contact if: you have any medication questions and your symptoms worsen Follow-up/Referrals: PCP,NO [Primary Care Provider] - 08/09/20 2:15 pm (Dr. Araiza) Diet: Regular Addtl Attending Provider Instructions: SPECIAL CARE INSTRUCTIONS: 1. Follow through with your scheduled aftercare appointments. If unable to keep an appointment, please call to reschedule. 2. Take your medication only as prescribed. Medication should not be changed or stopped without the approval of your doctor. In the event of worsening symptoms or concerns about side effects, contact your doctor immediately. 3. Utilize new healthy coping skills, anger management skills, and stress management skills learned during your hospitalization. Journal feelings and process them with a support person. Identify stressors or situations that may result in relapse, deterioration or inappropriate behaviors and develop a plan to deal with those issues. 4. If your coping skills are ineffective and you are in crisis, contact your outpatient providers for direction. If unable to reach your providers, please call the [facility] CRISIS LINE AT , go to the [facility] walk-in center at [address], [address], [place], or go to the closest Emergency Room. 5. Avoid alcohol and un-prescribed drugs. 6. You have been provided with the Mental Health Advance Directives Pamphlet for your review. AFTERCARE APPOINTMENTS: * Please call your insurance company prior to your scheduled appointment to confirm your aftercare providers are covered. Take your insurance information to your appointments. WHO TO CALL AND WHEN: Medical Emergencies: For questions or emergencies related to your hospital stay, please contact the Inpatient Behavioral Health Unit at [phone]. A professor of economics is on-call 20/01 for the Behavioral Health Unit for emergencies At any time you feel your situation is an emergency, you may also call 911 immediately. Pending Studies at Discharge: No Stand-Alone Forms: My [facility], Smoking Cessation Medications and DC Order Prescriptions: New prazosin 1 mg Capsule 1 mg PO HS Qty: 15 RF: 1 quetiapine 100 mg Tablet 100 mg PO HS Qty: 15 RF: 1 metoprolol tartrate 50 mg Tablet 50 mg PO BID Qty: 15 RF: 1 Xifaxan 550 mg Tablet 550 mg PO BID 6 Days Qty: 12 RF: 0 lactulose 20 gram/30 mL Solution 40 g PO QID 7 Days Qty: 1680 RF: 3 [id number]-VF 3.5-10,000-1 mg/mL-unit/mL-% Solution 2 drp otic (ear) QID 6 Days Qty: 10 RF: 0 famotidine 20 mg Tablet 20 mg PO DAILY Qty: 15 RF: 1 multivitamin [Daily-Arianna] Tablet 1 tab PO DAILY Qty: 15 RF: 1 ascorbic acid (vitamin C) [Vitamin C] 500 mg Tablet 500 mg PO BID Qty: 30 RF: 1 sodium bicarbonate 650 mg Tablet 1,300 mg PO BID 15 Days Qty: 60 RF: 1 pantoprazole 40 mg Tablet,Delayed Release (Dr/Ec) 40 mg PO BID Qty: 30 RF: 0 lidocaine 5 % Adhesive Patch,Medicated 1 patch transdermal DAILY Qty: 30 RF: 0 ursodiol 300 mg Capsule 300 mg PO BID Qty: 30 RF: 1 folic acid 1 mg Tablet 1 mg PO DAILY Qty: 15 RF: 1 cholecalciferol (vitamin D3) 25 mcg (1,000 unit) Capsule 2,000 unit PO DAILY Qty: 15 RF: 1 Discontinued Albuterol-Ipratropium 100mcg-20mcg/Inh Aerosol 1 puff inhalation QID PRN (Reason: Cough) RF: 0 multivitamin Tablet 1 tab PO DAILY RF: 0 acetaminophen [Tylenol] 325 mg Tablet 650 mg PO QID PRN (Reason: Pain) RF: 0 sodium bicarbonate 325 mg Tablet 1,300 mg PO BID RF: 0 ondansetron HCl [Zofran] 8 mg Tablet 8 mg PO DAILY PRN (Reason: Vomiting) RF: 0 potassium chloride 10 mEq Tablet Extended Release 10 meq PO DAILY RF: 0 melatonin 3 mg Tablet 3 mg PO HS RF: 0 famotidine [Pepcid] 20 mg Tablet 20 mg PO DAILY RF: 0 ascorbic acid (vitamin C) 500 mg Tablet 500 mg PO BID RF: 0 pantoprazole 40 mg Tablet,Delayed Release (Dr/Ec) 40 mg PO BID RF: 0 dextroamphetamine-amphetamine 20 mg tablet 20 mg PO TID RF: 0 lidocaine 5 % Adhesive Patch,Medicated 1 patch TOPICAL DAILY RF: 0 ursodiol 300 mg Capsule 300 mg PO BID RF: 0 metoprolol tartrate 50 mg Tablet 50 mg PO BID RF: 0 docusate sodium [Colace] 100 mg Capsule 100 mg PO BID PRN (Reason: Constipation) RF: 0 folic acid 1 mg Tablet 1 mg PO DAILY RF: 0 simethicone 80 mg Tablet,Chewable 80 mg PO TID PRN (Reason: Gi Upset) RF: 0 duloxetine 30 mg Capsule,Delayed Release(Dr/Ec) 30 mg PO DAILY RF: 0 cholecalciferol (vitamin D3) 50 mcg (2,000 unit) Capsule 50 mcg PO DAILY RF: 0 rifaximin 550 mg Tablet 550 mg PO BID RF: 0 lactulose 20 gram/30 mL Solution 40 g PO QID RF: 0 Hydrocortisone/Neomycin/Polymixin B Otic Solution 2 drp otic (ear) QID RF: 0 Discharge Orders: Discharge Order (Routine); Ordered 07/28/20 Ordered By: Chester Covington Admission Data Admit Date/Time: 07/26/20 12:58 Attending Provider: Iris Strauss Admit Provider: Iris Strauss Primary Care Provider: PCP,NO Other Interventions: Discharge Summary Assessment (RN) Last Done: 07/28/20 09:52 PSY Interdisciplinary Discharge Planning Last Done: 07/28/20 10:35 [place] [address] D/C day mgmt > 30 min Patient Type Established History Expanded Problem Focused Exam Expanded Problem Focused Medical Decision Making Moderate Complexity Diagnoses Suicidal ideation R45.851 Depression F32.9 Alcohol abuse F10.10 Opiate abuse, continuous F11.10 Chronic pain G89.29 Liver disease K76.9 Hypertension I10 Time Spent (min) 90
== END 2020-07-28 10:19 | disposition home or self-care (01) | DRG 951 ==
LOC: ED 14:18 → 3S 07-26 12:58